=== PATIENT | male | born 1950 | race Caucasian/White ===

== ENCOUNTER → 2018-02-19 | Outpatient (CLI) | payer MEDICARE | END | disposition home or self-care (01) | LOC: CFH 13:26 | PROVIDERS: ATTEND Internal Medicine | DX: K57.90 Diverticulosis of intestine, part unspecified, without perforation or abscess without bleeding (principal); M51.36 Other intervertebral disc degeneration, lumbar region | CPT/HCPCS: 74176 ==

== ENCOUNTER 2019-03-27 19:21 | Emergency (ER) | payer MEDICARE ==
[~2019-03-27] VITALS: Ht 172.7 cm; Wt 93.0 kg
[2019-03-27] MEDS ORDERED: PLEASE ENTER ALLERGIES MC SCH (20:00)
[2019-03-27] MEDS ORDERED: SODIUM CHLORIDE FLUSH 10ML SYR IVF ONE (20:00)
--- NOTE | 2019-03-27 20:14 | NUR ---
PT TO ED WITH REPORT OF NECK AND UPPER BACK PAIN RADIATING TO LEFT ARM. PT DENIES CP, N/V/. PT DENIES HX OF SAME. PT DENIES ANY OTHER C/O AT THIS TIME. PT CONNECTED TO ALL MONITORING, CALL IGHT WITHIN REACH, ALL SAFETY MEASURES IN PLACE.
[2019-03-27 20:31] LABS: BASOPHILS # (AUTO) 0.03 x10^3/uL (0-0.1); BASOPHILS % (AUTO) 1 % (0-1); EOSINOPHILS # (AUTO) 0.15 x10^3/uL (0-0.4); EOSINOPHILS % (AUTO) 3 % (1-7); LYMPHOCYTES # (AUTO) 2.25 x10^3/uL (1-3.4); LYMPHOCYTES % (AUTO) 40 % (22-44); MD NO; MEAN CORPUSCULAR HEMOGLOBIN 31.9 pg (27.5-34.5); MEAN CORPUSCULAR HGB CONC 34.2 g/dL (33.2-36.2); MEAN CORPUSCULAR VOLUME 93.2 fL (81-97); MEAN PLATELET VOLUME 8.3 fL (7.4-10.4); MONOCYTES # (AUTO) 0.58 x10^3/uL (0.2-0.8); MONOCYTES % (AUTO) 10 % (2-9); NEUTROPHILS % (AUTO) 46 % (42-75); PLATELET COUNT 248 x10^3/uL (130-400); RED BLOOD COUNT 4.75 x10^6/uL (4.38-5.82)
[2019-03-27 20:44] LABS: ALANINE AMINOTRANSFERASE 46 U/L (12-78); ALBUMIN 3.9 g/dL (3.4-5.0); ANION GAP 7 mmol/L (5-15); CALCIUM 9.2 mg/dL (8.5-10.1); CHLORIDE 107 mmol/L (98-107); CREATININE 1.17 mg/dL (0.7-1.3)
[2019-03-27 20:48] LABS: ALKALINE PHOSPHATASE 91 U/L (45-117); BILIRUBIN,TOTAL 0.5 mg/dL (0.2-1.0); TOTAL PROTEIN 7.5 g/dL (6.4-8.2); TROPONIN I < 0.015 ng/mL (0.000-0.045)
[2019-03-27] MEDS ORDERED: ACETAMINOPHEN 500 MG TABLET PO ONE (21:00)
[2019-03-27] MEDS ORDERED: ACETAMINOPHEN 500 MG TABLET ONE (21:33)
[2019-03-27 22:33] VITALS: BP 121/69
== END 2019-03-27 22:59 | disposition home or self-care (01) ==
LOC: ED 22:54
DX: S16.1XXA Strain of muscle, fascia and tendon at neck level, initial encounter (principal); R07.89 Other chest pain; M25.512 Pain in left shoulder; M25.511 Pain in right shoulder; I10 Essential (primary) hypertension; E11.9 Type 2 diabetes mellitus without complications; E78.5 Hyperlipidemia, unspecified; I25.10 Atherosclerotic heart disease of native coronary artery without angina pectoris; Z98.61 Coronary angioplasty status; I25.2 Old myocardial infarction; X58.XXXA Exposure to other specified factors, initial encounter; Y93.89 Activity, other specified; Y92.89 Other specified places as the place of occurrence of the external cause; Y99.8 Other external cause status
CPT/HCPCS: 36415; 71046; 80053; 83880; 84484; 85025; 93005; 99285